=== PATIENT | female | born 2000 | race Caucasian/White ===

== ENCOUNTER 2018-07-25 16:06 | Emergency (ER) | payer OTHER, SELFPAY ==
[2018-07-25 16:08] VITALS: BP 129/72; PULSE 107; RESP 15; TEMP 36.8; O2SAT 96; BMI 23.1
--- NOTE | 2018-07-25 16:14 | ED.RN ---
PT REPORTS 7/10 PAIN IN NECK. PT WEARING C-COLLAR. PT REPORTS NUMBNESS AND TINGLING IN RIGHT ARM. PT [id number].
--- NOTE | 2018-07-25 16:18 | RAD_ITS ---
STUDY: X-RAY - THORACIC SPINE REASON FOR EXAM: Female, 17 years old. Sports injury. TECHNIQUE: 3 view(s) of the thoracic spine were obtained. COMPARISON: None. FINDINGS: Normal kyphosis of the thoracic spine. There is no substantial scoliosis. Normal thoracic vertebrae and endplates. Normal disc space heights. No fractures. The soft tissue structures are unremarkable. RAD/Thoracic Spine 3 Views IMPRESSION: Normal x-ray examination of the thoracic spine. Electronically Signed: Clive Mendez MD at 17:00 EDT , Service support ,
--- NOTE | 2018-07-25 16:23 | ED.VISSUMM ---
- ER Visit Summary Date of Service: 07/25/18 Chief Complaint: Head injury History of Present Illness: The patient is a 17 F who goes to [facility]. They were playing rugby with a [employer] today. She hit heads with another player. No loss of consciousness. She is not on any blood thinners. She reports she has a headache is 6 out of 10 severity and dull. She complains of neck pain is 7-10 severity. Mid back pain is 3 out of 10 severity. She denies any numbness, weakness, or other injuries. Physical Examination: Vitals: Stable. Afebrile. Head: Mild soft tissue swelling to the left side of her forehead. There is no contusion or hematoma. Neck: Mild tenderness palpation from approximately C1-C3. Full ROM without difficulty. Back: Mild diffuse tenderness palpation of the thoracic spine. There is no point tenderness. General: A&O x 3. NAD. Cardiovascular exam: Regular rate and rhythm, no murmur, rub or gallop. Respiratory exam: Chest nontender. No crepitus. Clear to auscultation bilaterally. No wheezes or stridor. Abdominal exam: Soft, nontender, nondistended, normal bowel sounds. No pain in RUQ or LUQ specifically. No peritoneal signs. Extremity: Atraumatic. No pain with range of motion. Test Results: C-spine and thoracic spine x-rays are negative. Emergency Department Course and Treatment: Patient was treated with naproxen p.o. She is resting comfortably. Treatment Plan: Patient be discharged instructions to follow-up with her primary care physician in 3-5 days if not improving. Use Tylenol and/or ibuprofen for pain. Return to the emergency department for any worsening symptoms. Disposition: To home in improved and stable condition. Impression: 1. Closed head injury. 2. Cervical strain. This note was generated with [employer] dictation software. It may contain incorrect words, spelling, and punctuation that were not noted in review of the chart prior to signing ED Disposition - Plan for ED Patient: Disposition: Home or Assisted Living Chief Complaint: Head Injury Instructions: ED Head Injury Closed, ED Sprain Strain Neck Referrals: Doctor,Your [STAFF PHYSICIAN] - 3-5 Days if not improving
--- NOTE | 2018-07-25 16:40 | RAD_ITS ---
STUDY: X-RAY - CERVICAL SPINE REASON FOR EXAM: Female, 17 years old. Sports injury. TECHNIQUE: 3 view(s) of the cervical spine were obtained. COMPARISON: None FINDINGS: Normal anterior atlantoaxial articulation. Normal odontoid process. Normal cervical lordosis. Normal vertebral bodies and endplates. Normal disc space heights. The soft tissue structures are unremarkable. There is no demonstrated fracture of the cervical spine. RAD/Cerv Spine 2 or 3 Views IMPRESSION: Normal x-ray examination of the visualized cervical spine. Electronically Signed: Clive Mendez MD at 17:05 EDT , Service support ,
[2018-07-25] MEDS: Naproxen 250 MG Tablet 500 MG PO (16:51)
--- NOTE | 2018-07-25 17:22 | ED.DCSUM_ITS ---
- ER Visit Summary Date of Service: 07/25/18 Chief Complaint: Head injury History of Present Illness: The patient is a 17 F who goes to [facility]. They were playing rugby with a [employer] today. She hit heads with another player. No loss of consciousness. She is not on any blood thinners. She reports she has a headache is 6 out of 10 severity and dull. She complains of neck pain is 7-10 severity. Mid back pain is 3 out of 10 severity. She denies any numbness, weakness, or other injuries. Physical Examination: Vitals: Stable. Afebrile. Head: Mild soft tissue swelling to the left side of her forehead. There is no contusion or hematoma. Neck: Mild tenderness palpation from approximately C1-C3. Full ROM without difficulty. Back: Mild diffuse tenderness palpation of the thoracic spine. There is no point tenderness. General: A&O x 3. NAD. Cardiovascular exam: Regular rate and rhythm, no murmur, rub or gallop. Respiratory exam: Chest nontender. No crepitus. Clear to auscultation bilaterally. No wheezes or stridor. Abdominal exam: Soft, nontender, nondistended, normal bowel sounds. No pain in RUQ or LUQ specifically. No peritoneal signs. Extremity: Atraumatic. No pain with range of motion. Test Results: C-spine and thoracic spine x-rays are negative. Emergency Department Course and Treatment: Patient was treated with naproxen p.o. She is resting comfortably. Treatment Plan: Patient be discharged instructions to follow-up with her primary care physician in 3-5 days if not improving. Use Tylenol and/or ibuprofen for pain. Return to the emergency department for any worsening symptoms. Disposition: To home in improved and stable condition. Impression: 1. Closed head injury. 2. Cervical strain. This note was generated with [employer] dictation software. It may contain incorrect words, spelling, and punctuation that were not noted in review of the chart prior to signing ED Disposition - Plan for ED Patient: Disposition: Home or Assisted Living Chief Complaint: Head Injury Instructions: ED Head Injury Closed, ED Sprain Strain Neck Referrals: Doctor,Your [STAFF PHYSICIAN] - 3-5 Days if not improving
[2018-07-25 17:40] VITALS: BP 121/69; PULSE 81; RESP 16; O2SAT 99
== END 2018-07-25 17:41 | disposition home or self-care (01) ==
PROVIDERS: Emergency Provider Emergency Medicine
DX: S09.90XA Unspecified injury of head, initial encounter (principal); S16.1XXA Strain of muscle, fascia and tendon at neck level, initial encounter; W50.0XXA Accidental hit or strike by another person, initial encounter; Y93.63 Activity, rugby; Y92.328 Other athletic field as the place of occurrence of the external cause; Y99.8 Other external cause status
CPT/HCPCS: 72040; 72072; 96374; 99284; A4216